=== PATIENT | male | born 1985 | race Caucasian/White ===

== ENCOUNTER 2017-10-03 05:13 | Emergency (ER) | payer BC ==
--- NOTE | 2017-10-03 05:25 | ED ---
General Adult HPI - General Source: patient, RN notes reviewed, old records reviewed Mode of arrival: ambulatory Limitations: no limitations <Casey Hernandez - Last Filed: 10/03/17 05:35> <Aleks Sprague - Last Filed: 10/03/17 09:54> - General Chief complaint: Abdominal Pain Stated complaint: Abdominal Pain/Back Pain Time Seen by Provider: 10/03/17 05:20 - History of Present Illness Initial comments: This is a 32-year-old male to the ER for vaginal gone. Severe epigastric abdominal pain with nausea vomiting. Patient states worst pain is had. Patient denies any fevers. No modifying factors for pain. Patient states he felt a little bit better after vomiting, no diarrhea. No recent travel history. Patient does admit to being a daily drinker. No prior history of pancreatitis. No other medical complaints (Casey Hernandez) - Related Data Home Medications Medication Instructions Recorded Confirmed No Known Home Medications [No 10/03/17 10/03/17 Known Home Medications] Allergies Allergy/AdvReac Type Severity Reaction Status Date / Time No Known Allergies Allergy Verified 10/03/17 05:21 Review of Systems ROS Other: All systems not noted in ROS Statement are negative. <Casey Hernandez - Last Filed: 10/03/17 05:35> ROS Other: All systems not noted in ROS Statement are negative. <Aleks Sprague - Last Filed: 10/03/17 09:54> ROS Statement: Those systems with pertinent positive or pertinent negative responses have been documented in the HPI. Past Medical History Past Medical History: No Reported History History of Any Multi-Drug Resistant Organisms: None Reported Additional Past Surgical History / Comment(s): lasix Past Psychological History: No Psychological Hx Reported Smoking Status: Current every day smoker Past Alcohol Use History: Occasional Past Drug Use History: None Reported <Casey Hernandez - Last Filed: 10/03/17 05:35> General Exam Limitations: no limitations General appearance: alert, in no apparent distress Head exam: Present: atraumatic, normocephalic, normal inspection Eye exam: Present: normal appearance, PERRL, EOMI. Absent: scleral icterus, conjunctival injection, periorbital swelling ENT exam: Present: normal exam, mucous membranes moist Neck exam: Present: normal inspection. Absent: tenderness, meningismus, lymphadenopathy Respiratory exam: Present: normal lung sounds bilaterally. Absent: respiratory distress, wheezes, rales, rhonchi, stridor Cardiovascular Exam: Present: regular rate, normal rhythm, normal heart sounds. Absent: systolic murmur, diastolic murmur, rubs, gallop, clicks GI/Abdominal exam: Present: soft, tenderness (epigastric), guarding, normal bowel sounds. Absent: distended, rebound, rigid Extremities exam: Present: normal inspection, full ROM, normal capillary refill. Absent: tenderness, pedal edema, joint swelling, calf tenderness Back exam: Present: normal inspection Neurological exam: Present: alert, oriented X3, CN II-XII intact Psychiatric exam: Present: normal affect, normal mood Skin exam: Present: warm, dry, intact, normal color. Absent: rash <Casey Hernandez - Last Filed: 10/03/17 05:35> Vital Signs 10/03/17 10/03/17 05:16 06:36 Temperature 98.5 F Pulse Rate 70 80 Respiratory 18 17 Rate Blood Pressure 127/58 105/65 O2 Sat by Pulse 100 99 Oximetry Medical Decision Making <Casey Hernandez - Last Filed: 10/03/17 05:35> - Lab Data Result diagrams: 10/03/17 05:52 10/03/17 05:52 <Aleks Sprague - Last Filed: 10/03/17 09:54> - Medical Decision Making 32-year-old male presenting with epigastric abdominal pain, one episode of self- induced vomiting and one episode of diarrhea. Patient was signed out awaiting laboratory studies. At the time my evaluation, patient was completely asymptomatic, pain-free. Abdominal examination reveals no tenderness, no rebound or guarding. Vital signs are stable. Patient has no nausea and no complaints. Laboratory studies reveal white blood cell count 10.9, stable hemoglobin. Total bili of 3.3, fractions are pending. AST elevated at 241, ALP 195, alk phos normal. Lipase normal. Ultrasound is obtained, this shows no gallstones, common bile duct is within normal limits. The gallbladder wall is erythematous and thickened at 8 mm. Radiological interpretation is acalculous cholecystitis. Patient's symptoms have resolved, he is afebrile well -appearing, have low suspicion for acalculous cholecystitis. Case is discussed with general surgery on-call Dr. Camacho, we both feel that given the patient is asymptomatic at this time outpatient follow-up is appropriate. Case also discussed with Dr. Ji, patient will follow-up as an outpatient. Patient will follow-up with gastroenterology, with hepatitis panel pending. Diagnosis: Transaminitis, abdominal pain nausea vomiting resolved. (Aleks Sprague) - Lab Data Lab Results 10/03/17 10/03/17 10/03/17 Range/Units 05:52 05:52 05:52 WBC 10.9 H (3.8-10.6) k/uL RBC 4.90 (4.30-5.90) m/uL Hgb 14.4 (13.0-17.5) gm/dL Hct 42.6 (39.0-53.0) % MCV 86.8 (80.0-100.0) fL MCH 29.3 (25.0-35.0) pg MCHC 33.7 (31.0-37.0) g/dL RDW 12.7 (11.5-15.5) % Plt Count 138 L (150-450) k/uL Neutrophils % 89 % Lymphocytes % 4 % Monocytes % 6 % Eosinophils % 1 % Basophils % 0 % Neutrophils # 9.6 H (1.3-7.7) k/uL Lymphocytes # 0.5 L (1.0-4.8) k/uL Monocytes # 0.6 (0-1.0) k/uL Eosinophils # 0.1 (0-0.7) k/uL Basophils # 0.0 (0-0.2) k/uL Sodium 137 (137-145) mmol/L Potassium 4.2 (3.5-5.1) mmol/L Chloride 104 (98-107) mmol/L Carbon Dioxide 24 (22-30) mmol/L Anion Gap 9 mmol/L BUN 22 H (9-20) mg/dL Creatinine 0.80 (0.66-1.25) mg/dL Est GFR (MDRD) Af Amer >60 (>60 ml/min/1.73 sqM) Est GFR (MDRD) Non-Af >60 (>60 ml/min/1.73 sqM) Glucose 133 H (74-99) mg/dL Calcium 9.7 (8.4-10.2) mg/dL Magnesium 1.6 (1.6-2.3) mg/dL Total Bilirubin 3.3 H (0.2-1.3) mg/dL AST 241 H (17-59) U/L ALT 135 H (21-72) U/L Alkaline Phosphatase 76 (38-126) U/L Total Creatine Kinase 195 H (55-170) U/L CK-MB (CK-2) 1.3 (0.0-2.4) ng/mL CK-MB (CK-2) Rel Index 0.7 Troponin I <0.012 (0.000-0.034) ng/mL Total Protein 7.1 (6.3-8.2) g/dL Albumin 4.5 (3.5-5.0) g/dL Amylase 68 (30-110) U/L Lipase 70 (23-300) U/L Serum Alcohol <10 mg/dL Disposition <Casey Hernandez - Last Filed: 10/03/17 05:35> Time of Disposition: 09:54 <Aleks Sprague - Last Filed: 10/03/17 09:54> Clinical Impression: Transaminitis, Abdominal pain Disposition: HOME SELF-CARE Condition: Good Instructions: Abdominal Pain (ED), Acute Nausea and Vomiting (ED) Additional Instructions: Return to emergency department with development of jaundice, light stools, epigastrium or right upper quadrant pain, fever, or nausea vomiting. Referrals: Jameson Clemens MD [Primary Care Provider] - 1-2 days Mary Whittington MD [STAFF PHYSICIAN] - 1-2 days Filiberto Ji MD [STAFF PHYSICIAN] - 1-2 days
[2017-10-03] MEDS ORDERED: PANTOPRAZOLE 40 MG/10 ML VIAL IVP STA (05:35)
[2017-10-03] MEDS ORDERED: MORPHINE SULFATE 4 MG/ML SYRINGE IV STA (05:35)
[2017-10-03] MEDS ORDERED: ONDANSETRON 4 MG/2 ML VIAL IVP STA (05:35)
[2017-10-03] MEDS ORDERED: SODIUM CHLORIDE 0.9% 1,000 ML IV STA ×2 (05:35)
[2017-10-03 06:22] LABS: Basophils % (A) 0 %; CH 30.1; CHCM 34.7; Eosinophils # (A) 0.1 k/uL (0-0.7); Eosinophils % (A) 1 %; HCT 42.6 % (39.0-53.0); HDW 2.52; HGB 14.4 gm/dL (13.0-17.5); Luc # (Auto) 0.08; Luc % (Auto) 1; Lymphocytes # (A) 0.5 k/uL (1.0-4.8); Lymphocytes % (A) 4 %; MCH 29.3 pg (25.0-35.0); MCHC 33.7 g/dL (31.0-37.0); MCV 86.8 fL (80.0-100.0); Mean Platelet Volume 8.6; Monocytes # (A) 0.6 k/uL (0-1.0); Monocytes % (A) 6 %; Neutrophils # (A) 9.6 k/uL (1.3-7.7); Neutrophils % (A) 89 %; RDW 12.7 % (11.5-15.5); WBC 10.9 k/uL (3.8-10.6); WBC (Perox) 11.03
[2017-10-03 06:37] VITALS: RESP 17
[2017-10-03 06:53] LABS: ALT 135 U/L (21-72); AST 241 U/L (17-59); Alcohol <10 mg/dL; Alkaline Phosphatase 76 U/L (38-126); Amylase 68 U/L (30-110); Anion Gap 9 mmol/L; Blood Urea Nitrogen 22 mg/dL (9-20); Calcium 9.7 mg/dL (8.4-10.2); Carbon Dioxide 24 mmol/L (22-30); Chloride 104 mmol/L (98-107); Glucose 133 mg/dL (74-99); Magnesium 1.6 mg/dL (1.6-2.3); Non-African American GFR(MDRD) >60 (>60 ml/min/1.73 sqM); Potassium 4.2 mmol/L (3.5-5.1); Sodium 137 mmol/L (137-145); Total Bilirubin 3.3 mg/dL (0.2-1.3); Total Protein 7.1 g/dL (6.3-8.2)
[2017-10-03 06:54] LABS: Creatine Kinase 195 U/L (55-170)
[2017-10-03 07:07] LABS: Creatine Kinase MB 1.3 ng/mL (0.0-2.4); Troponin I <0.012 ng/mL (0.000-0.034)
--- NOTE | 2017-10-03 08:41 | US ---
EXAMINATION TYPE: US gallbladder DATE OF EXAM: 10/03/2017 COMPARISON: NONE CLINICAL HISTORY: Pain. Pt states abd pain that radiates to back that started last night after runnin g/ Abnormal labs EXAM MEASUREMENTS: Liver Length: 17.8 cm Gallbladder Wall: 0.8 cm CBD: 0.4 cm Right Kidney: 10.5 x 4.1 x 5.2 cm Pancreas: wnl Liver: Upper limits of normal for size/ slightly heterogeneous Gallbladder: Lumen clear, wall heterogeneous and thickened with possible fluid Evidence for sonographic Aquino's sign: No CBD: wnl Right Kidney: wnl The pancreas is unremarkable. Liver size is upper limits of normal. There is no evidence of biliary dilatation. No definite gallstones are seen. The gallbladder wall is edematous and grossly thickened measuring 8 mm. There is no sonographic Aquino's sign. The distal common hepatic duct measures 4 mm. Right kidney is unremarkable. Do not intrahepatic IVC is normal. IMPRESSION: MARKEDLY THICKENED AND EDEMATOUS GALLBLADDER WALL SUGGESTS ACALCULOUS CHOLECYSTITIS. PLEASE CORRELATE CLINICALLY.
[2017-10-03 10:16] LABS: Total Bilirubin 3.2 mg/dL (0.2-1.3)
[2017-10-03 10:29] VITALS: BP 109/69; PULSE 82; TEMP 98.4
== END 2017-10-03 10:12 | disposition home or self-care (01) ==
LOC: EC 05:13
DX: R74.0 Nonspecific elevation of levels of transaminase and lactic acid dehydrogenase [LDH] (principal); R10.13 Epigastric pain; F17.200 Nicotine dependence, unspecified, uncomplicated
CPT/HCPCS: 36415; 80053; 80074; 82150; 82248; 82550; 82553; 83690; 83735; 84484; 85025; 80320; 76705; 99284; 96374; 96375 ×2; 96361 ×4; J2270; J2405; C9113